=== PATIENT | female | born 1950 ===

== ENCOUNTER 2017-10-29 18:53 | Emergency (ER) | payer OTHER ==
[~2017-10-29] VITALS: Ht 157.5 cm; Wt 82.1 kg
[~2017-10-29 18:53] MED LIST: ADVAIR 2501 DISK W/1 IH; PROVENTIL3 ML/2.5 M IH; XOPENEX0.63 MG/3 IH
[2017-10-29] MEDS ORDERED: SIMVASTATIN10 MG (19:29)
[2017-10-29] MEDS ORDERED: SINGULAIR10 MG (19:29)
[2017-10-29] MEDS ORDERED: EVISTA60 MG (19:29)
[2017-10-29] MEDS ORDERED: LANOXIN125 MCG (19:30)
[2017-10-29] MEDS ORDERED: MEDROLPACK PO (21:57)
[2017-10-29] MEDS ORDERED: MUCINEX DM ER1 EAC1 PO (21:57)
[2017-10-29] MEDS ORDERED: IPRAT-ALBUT 0.5-3 ML IH (21:57)
[2017-10-29] MEDS ORDERED: TESSALON PERLE100 MG PO (21:57)
== END 2017-10-29 22:06 | disposition home or self-care (01) ==
LOC: ER 18:53
DX: J45.998 Other asthma (principal)